=== PATIENT | female | born 1990 | race Caucasian/White ===

== ENCOUNTER 2016-09-08 17:28 | Emergency (ER) | payer SELFPAY ==
[2016-09-08] MEDS ORDERED: ONDANSETRON 4 MG TAB.RAPDIS PO ONE (18:07)
--- NOTE | 2016-09-08 18:08 | ER Document Report ---
ED Medical Screen (RME) - General Chief Complaint: Vomiting Stated Complaint: VOMITING,MUSCLE ACHES,NAUSEA,DIZZY Notes: 26-year-old female with onset 2 AM nausea vomiting diarrhea which is lasted throughout the day. She vomited at least 6 times, multiple episodes diarrhea. Has been sort of dizzy and lightheaded. No fever. I have greeted and performed a rapid initial assessment of this patient. A comprehensive ED assessment and evaluation of the patient, analysis of test results and completion of the medical decision making process will be conducted by additional ED providers. TRAVEL OUTSIDE OF THE [place] IN LAST 30 DAYS: No - Related Data Allergies/Adverse Reactions: naproxen sodium [From Treximet] Allergy (Verified 09/08/16 17:36) sumatriptan succinate [From Treximet] Allergy (Verified 09/08/16 17:36) trazodone Allergy (Verified 09/08/16 17:36) Past Medical History Neurological Medical History: Reports: Hx Migraine Renal/ Medical History: Denies: Hx Peritoneal Dialysis Psychiatric Medical History: Reports: Hx Anxiety - Immunizations Hx Diphtheria, Pertussis, Tetanus Vaccination: Yes Physical Exam - Vital signs Vitals: Temp Pulse Resp BP Pulse Ox 98.1 F 89 16 101/68 100 09/08/16 17:38 09/08/16 17:38 09/08/16 17:38 09/08/16 17:38 09/08/16 17:38 Course - Vital Signs Vital signs: Temp Pulse Resp BP Pulse Ox 98.1 F 89 16 101/68 100 09/08/16 17:38 09/08/16 17:38 09/08/16 17:38 09/08/16 17:38 09/08/16 17:38
[2016-09-08 18:40] LABS: ABSOLUTE EOSINOPHILS # (AUTO) 0.2 10^3/uL (0.0-0.6); ABSOLUTE LYMPHOCYTES (AUTO) 1.3 10^3/uL (0.5-4.7); ABSOLUTE MONOCYTES (AUTO) 0.6 10^3/uL (0.1-1.4); ABSOLUTE NEUT (AUTO) 11.7 10^3/uL (1.7-8.2); BASOPHILS % (AUTO) 0.2 % (0-2); EOSINOPHILS % (AUTO) 1.3 % (0-6); HEMATOCRIT 42.5 % (36.0-47.0); HEMOGLOBIN 13.5 g/dL (12.0-15.5); LYMPHOCYTES % (AUTO) 9.7 % (13-45); MEAN CORPUSCULAR HGB CONC 31.8 g/dL (32.0-36.0); MEAN CORPUSCULAR VOLUME 79 fl (80-97); MONOCYTES % (AUTO) 4.3 % (3-13); RED CELL DISTRIBUTION WIDTH 14.1 % (11.5-14.0); SEGMENTED NEUTROPHILS % (AUTO) 84.5 % (42-78); WHITE BLOOD COUNT 13.8 10^3/uL (4.0-10.5)
[2016-09-08 18:53] LABS: APPEARANCE,URINE SLIGHTLY-CLOUDY; BILIRUBIN,URINE NEGATIVE (NEGATIVE); GLUCOSE, URINE NEGATIVE (NEGATIVE); KETONES,URINE NEGATIVE (NEGATIVE); LEUKOCYTE ESTERASE,URINE NEGATIVE (NEGATIVE); NITRITE,URINE NEGATIVE (NEGATIVE); PROTEIN,URINE NEGATIVE (NEGATIVE); URINE SPECIFIC GRAVITY 1.019; UROBILINOGEN,URINE NEGATIVE mg/dL (<2.0)
[2016-09-08 19:01] LABS: ALANINE AMINOTRANSFERASE 21 U/L (9-52); ALBUMIN 4.8 g/dL (3.5-5.0); ALKALINE PHOSPHATASE 62 U/L (38-126); ANION GAP 14 (5-19); ASPARTATE AMINO TRANSFERASE 15 U/L (14-36); BILIRUBIN,DIRECT 0.3 mg/dL (0.0-0.4); BLOOD UREA NITROGEN 12 mg/dL (7-20); CALCIUM 9.1 mg/dL (8.4-10.2); CARBON DIOXIDE 25 mmol/L (22-30); CHLORIDE 105 mmol/L (98-107); CREATININE RESULT 0.65 mg/dL (0.52-1.25); GLUCOSE 107 mg/dL (75-110); POTASSIUM 4.2 mmol/L (3.6-5.0); SODIUM 144.3 mmol/L (137-145); TOTAL PROTEIN 7.7 g/dL (6.3-8.2)
[2016-09-08] MEDS ORDERED: PROMETHAZINE HCL 25 MG TABLET PO ONE (23:57)
[2016-09-08] MEDS ORDERED: HYDROCODONE/ACETAMINOPHEN 5-325 MG TABLET PO ONE (23:57)
[2016-09-08] MEDS ORDERED: NORMAL SALINE 1000 ML 1,000 ML IV ONE (23:57)
--- NOTE | 2016-09-09 01:23 | ER Document Report ---
ED GI/ - General Chief Complaint: Vomiting Stated Complaint: VOMITING,MUSCLE ACHES,NAUSEA,DIZZY Notes: Patient is a 26-year-old female that comes emergency department for chief complaint of vomiting and diarrhea that started yesterday, she states she has had about 10 episodes of diarrhea, she has vomited multiple times today, she denies fever, blood in vomit or stool, recent antibiotics, suspicious foods. Past medical history of migraines. LMP about 2 weeks ago. TRAVEL OUTSIDE OF THE [place] IN LAST 30 DAYS: No - Related Data Allergies/Adverse Reactions: naproxen sodium [From Treximet] Allergy (Verified 09/08/16 17:36) sumatriptan succinate [From Treximet] Allergy (Verified 09/08/16 17:36) trazodone Allergy (Verified 09/08/16 17:36) Past Medical History - General Information source: Patient - Social History Smoking Status: Never Smoker Drug Abuse: None Lives with: Family Family History: Reviewed & Not Pertinent Patient has suicidal ideation: No Patient has homicidal ideation: No Neurological Medical History: Reports: Hx Migraine Renal/ Medical History: Denies: Hx Peritoneal Dialysis Psychiatric Medical History: Reports: Hx Anxiety Surgical Hx: Negative - Immunizations Hx Diphtheria, Pertussis, Tetanus Vaccination: Yes Review of Systems - Review of Systems Constitutional: No symptoms reported EENT: No symptoms reported Cardiovascular: No symptoms reported Respiratory: No symptoms reported Gastrointestinal: No symptoms reported, See HPI Genitourinary: No symptoms reported Female Genitourinary: No symptoms reported Musculoskeletal: No symptoms reported Skin: No symptoms reported Hematologic/Lymphatic: No symptoms reported Neurological/Psychological: No symptoms reported Physical Exam - Vital signs Vitals: Temp Pulse Resp BP Pulse Ox 98.1 F 89 16 101/68 100 09/08/16 17:38 09/08/16 17:38 09/08/16 17:38 09/08/16 17:38 09/08/16 17:38 Interpretation: Normal - General General appearance: Appears well, Alert In distress: None - Patient alert, smiling, well-appearing - HEENT Head: Normocephalic, Atraumatic Eyes: Normal Pupils: PERRL - Respiratory Respiratory status: No respiratory distress Chest status: Nontender Breath sounds: Normal. No: Decreased air movement, Nonproductive cough, Productive cough, Rales, Rhonchi, Stridor, Wheezing Chest palpation: Normal - Cardiovascular Rhythm: Regular. No: Tachycardia Heart sounds: Normal auscultation, S1 appreciated, S2 appreciated Murmur: No - Abdominal Inspection: Normal Distension: No distension Bowel sounds: Normal Tenderness: Nontender. No: Tender - Soft and benign abdomen with no guarding or tenderness Organomegaly: No organomegaly - Back Back: Normal, Nontender. No: Tender, CVA tenderness - Extremities General upper extremity: Normal inspection, Nontender, Normal color, Normal ROM , Normal temperature General lower extremity: Normal inspection, Nontender, Normal color, Normal ROM , Normal temperature, Normal weight bearing. No: Fiordaliza's sign - Neurological Neuro grossly intact: Yes Cognition: Normal Orientation: AAOx4 Wolcott Coma Scale Eye Opening: Spontaneous Aysha Coma Scale Verbal: Oriented Aysha Coma Scale Motor: Obeys Commands Aysha Coma Scale Total: 15 Speech: Normal Motor strength normal: LUE, RUE, LLE, RLE Sensory: Normal - Psychological Associated symptoms: Normal affect, Normal mood - Skin Skin Temperature: Warm Skin Moisture: Dry Skin Color: Normal Course - Re-evaluation Re-evalutation: Patient reports that she vomited after Zofran, patient was given IV fluids, pain medication, Phenergan. Afterwards patient states she feels great. Patient well-appearing, not tachycardic, abdomen is completely nontender, mild leukocytosis which is nonspecific given clinical picture vomiting and diarrhea, chemistry unremarkable, very low suspicion of acute abdomen or severe infection , suspect patient has a virus. Patient be treated symptomatically with Phenergan, advised treatment, follow-up, return precautions which were discussed in detail. Patient states understanding and agreement. - Vital Signs Vital signs: Temp Pulse Resp BP Pulse Ox 97.4 F 63 19 104/61 100 09/09/16 03:32 09/09/16 03:32 09/09/16 03:32 09/09/16 03:32 09/09/16 03:32 - Laboratory Result Diagrams: 09/08/16 18:15 09/08/16 18:15 Laboratory results interpreted by me: 09/08/16 18:15 WBC 13.8 H RBC 5.40 H MCV 79 L MCH 25.0 L MCHC 31.8 L RDW 14.1 H Seg Neutrophils % 84.5 H Lymphocytes % 9.7 L Absolute Neutrophils 11.7 H Discharge - Discharge Clinical Impression: Vomiting and diarrhea Condition: Stable Disposition: HOME, SELF-CARE Additional Instructions: Workup, exam, symptoms most consistent with a viral illness. Take the prescribed medications, drink plenty of fluids, start with bland foods. Follow-up with primary care. Return to the emergency department for any concerning or worsening symptoms including uncontrolled vomiting, severe abdominal pain, etc. Prescriptions: Promethazine HCl [Phenergan 25 mg Tablet] 1 - 2 tab PO Q6H PRN #20 tablet PRN Reason: Forms: Return to Work
[2016-09-09 03:33] VITALS: BP 104/61
== END 2016-09-09 01:25 | disposition home or self-care (01) ==
LOC: ER 17:28
DX: R11.10 Vomiting, unspecified (principal); R19.7 Diarrhea, unspecified; M79.1 Myalgia; R42 Dizziness and giddiness
CPT/HCPCS: 99283; 96360; 36415; 84703; 85025; 80053; 81001; S0119; J7030

== ENCOUNTER 2016-12-25 12:13 | Emergency (ER) | payer SELFPAY ==
--- NOTE | 2016-12-25 12:35 | ER Document Report ---
ED Medical Screen (RME) - General Chief Complaint: Abdominal Pain Stated Complaint: ABDOMINAL PAIN,NAUSEA,WEAK Time Seen by Provider: 12/25/16 12:33 Mode of Arrival: Ambulatory Information source: Patient TRAVEL OUTSIDE OF THE [place] IN LAST 30 DAYS: No - HPI Onset: Yesterday - PM Onset/Duration: Gradual Quality of pain: Cramping - since this AM, Dull Severity: Moderate Associated Symptoms: Nausea, Vomiting Exacerbated by: Movement Relieved by: Remaining still Similar symptoms previously: No Recently seen / treated by doctor: No - Related Data Allergies/Adverse Reactions: naproxen sodium [From Treximet] Allergy (Verified 12/25/16 12:19) sumatriptan succinate [From Treximet] Allergy (Verified 12/25/16 12:19) trazodone Allergy (Verified 12/25/16 12:19) Home Medications: Current Home Medications No Home Medications 12/25/16 [History] Past Medical History - General Information source: Patient - Social History Frequency of alcohol use: Rare Drug Abuse: None Neurological Medical History: Reports: Hx Migraine Renal/ Medical History: Denies: Hx Peritoneal Dialysis Psychiatric Medical History: Reports: Hx Anxiety, Hx Depression Past Surgical History: Reports: Hx Oral Surgery - Tooth removal. Denies: Hx Abdominal Surgery - Immunizations Hx Diphtheria, Pertussis, Tetanus Vaccination: Yes Review of Systems - Review of Systems Constitutional: See HPI EENT: No symptoms reported Cardiovascular: No symptoms reported Respiratory: No symptoms reported Gastrointestinal: See HPI Physical Exam - Vital signs Vitals: Temp Pulse Resp BP Pulse Ox 98.3 F 81 12 107/66 99 12/25/16 12:19 12/25/16 12:19 12/25/16 12:19 12/25/16 12:19 12/25/16 12:19 Interpretation: Normal. No: Tachycardic, Tachypneic, Febrile Course - Vital Signs Vital signs: Temp Pulse Resp BP Pulse Ox 98.3 F 81 12 107/66 99 12/25/16 12:19 12/25/16 12:19 12/25/16 12:19 12/25/16 12:19 12/25/16 12:19
[2016-12-25 13:31] LABS: APPEARANCE,URINE CLOUDY; BILIRUBIN,URINE NEGATIVE (NEGATIVE); GLUCOSE, URINE NEGATIVE (NEGATIVE); KETONES,URINE NEGATIVE (NEGATIVE); LEUKOCYTE ESTERASE,URINE MODERATE (NEGATIVE); NITRITE,URINE POSITIVE (NEGATIVE); PROTEIN,URINE 100 mg/dL (NEGATIVE); URINE SPECIFIC GRAVITY 1.027; UROBILINOGEN,URINE NEGATIVE mg/dL (<2.0)
[2016-12-25 13:48] LABS: ALANINE AMINOTRANSFERASE 22 U/L (9-52); ALKALINE PHOSPHATASE 72 U/L (38-126); ANION GAP 13 (5-19); ASPARTATE AMINO TRANSFERASE 23 U/L (14-36); BILIRUBIN,DIRECT 0.3 mg/dL (0.0-0.4); BILIRUBIN,TOTAL 0.6 mg/dL (0.2-1.3); BLOOD UREA NITROGEN 11 mg/dL (7-20); CALCIUM 9.4 mg/dL (8.4-10.2); CARBON DIOXIDE 26 mmol/L (22-30); CHLORIDE 106 mmol/L (98-107); CREATININE RESULT 0.69 mg/dL (0.52-1.25); GLUCOSE 108 mg/dL (75-110); POTASSIUM 3.7 mmol/L (3.6-5.0); SODIUM 145.1 mmol/L (137-145); TOTAL PROTEIN 8.5 g/dL (6.3-8.2)
--- NOTE | 2016-12-25 14:51 | ER Document Report ---
ED General - General Chief Complaint: Abdominal Pain Stated Complaint: ABDOMINAL PAIN,NAUSEA,WEAK Time Seen by Provider: 12/25/16 12:33 Mode of Arrival: Ambulatory Information source: Patient Notes: Is a 26-year-old female with no medical problems 4 para 2 (history of 2 miscarriages) presents to the emergency room with nausea, right-sided abdominal pain and chills. Patient denies symptoms of UTI. Patient denies vaginal discharge. TRAVEL OUTSIDE OF THE [place] IN LAST 30 DAYS: No - Related Data Allergies/Adverse Reactions: naproxen sodium [From Treximet] Allergy (Verified 12/25/16 12:19) sumatriptan succinate [From Treximet] Allergy (Verified 12/25/16 12:19) trazodone Allergy (Verified 12/25/16 12:19) Past Medical History - General Information source: Patient - Social History Smoking Status: Former Smoker Frequency of alcohol use: Rare Drug Abuse: None Family History: Reviewed & Not Pertinent Neurological Medical History: Reports: Hx Migraine Renal/ Medical History: Denies: Hx Peritoneal Dialysis Psychiatric Medical History: Reports: Hx Anxiety, Hx Depression Past Surgical History: Reports: Hx Oral Surgery - Tooth removal. Denies: Hx Abdominal Surgery - Immunizations Hx Diphtheria, Pertussis, Tetanus Vaccination: Yes Physical Exam - Vital signs Vitals: Temp Pulse Resp BP Pulse Ox 98.3 F 81 12 107/66 99 12/25/16 12:19 12/25/16 12:19 12/25/16 12:19 12/25/16 12:19 12/25/16 12:19 Notes: Physical exam: GENERAL: 26-year-old female, alert and oriented 3, no acute distress HEAD: Atraumatic, normocephalic. EYES: Pupils equal round and reactive to light, extraocular movements intact, sclera anicteric, conjunctiva are normal. ENT: TMs normal, nares patent, oropharynx clear without exudates. Moist mucous membranes. NECK: Normal range of motion, supple without lymphadenopathy or JVD. LUNGS: Breath sounds clear to auscultation bilaterally and equal. No wheezes rales or rhonchi. HEART: Regular rate and rhythm without murmurs, rubs or gallops. Back: Patient does have right CVA tenderness. ABDOMEN: Soft, normoactive bowel sounds. Mild tenderness over the right flank. No pain at McBurney's point. No guarding, no rebound. No masses appreciated. Pelvic exam: External genitalia normal, scant discharge in vault, no cervical motion tenderness, no adnexal tenderness, no adnexal masses. EXTREMITIES: Normal range of motion, no pitting or edema. No clubbing or cyanosis. NEUROLOGICAL: Cranial nerves II through XII grossly intact. Normal speech, normal gait. PSYCH: Normal mood, normal affect. SKIN: Warm, Dry, normal turgor, no rashes or lesions noted. Course - Re-evaluation Re-evalutation: 12/25/16 17:25 Repeat examination, the patient is alert and oriented 3. She did eat a brownie. She has an appetite. She has minimal discomfort in the right lower abdomen. She seems mostly uncomfortable in the right flank consistent with a pyelonephritis. Bedside ultrasound showed no hydronephrosis. Pelvic exam revealed a very benign exam in the pelvic region. Labs have been reasonable. I have given the patient good instructions that if she develops worsening pain to the right lower quadrant, that she will need to return to the emergency room for reevaluation. - Vital Signs Vital signs: Temp Pulse Resp BP Pulse Ox 98.3 F 81 12 107/66 99 12/25/16 12:19 12/25/16 12:19 12/25/16 12:19 12/25/16 12:19 12/25/16 12:19 - Laboratory Result Diagrams: 12/25/16 14:37 12/25/16 12:56 Laboratory results interpreted by me: 12/25/16 12/25/16 12/25/16 12:56 12:56 14:37 MCH 26.2 L RDW 14.1 H Sodium 145.1 H Total Protein 8.5 H Urine Protein 100 H Urine Nitrite POSITIVE H Ur Leukocyte Esterase MODERATE H Discharge - Discharge Clinical Impression: Pyelonephritis Condition: Stable Disposition: HOME, SELF-CARE Instructions: Pyelonephritis ([facility]), Observation for Appendicitis ([facility]) Additional Instructions: Recommendations: Rest, drink plenty of fluids, take antibiotics as prescribed. Take nausea medicine and pain medicine as prescribed. Return to the emergency room if he developed worsening pain to the right lower abdomen. This is where the appendix is, and if the pain worsens in this area, he will need reevaluation and possible CT scan. The pain medicine you're taking prescribed as a narcotic. There are several important things you should know about this medicine: 1. This medicine contains Tylenol: It is important that you do not take Tylenol (or acetaminophen) while on this medicine. Tylenol is metabolized by the liver and taking too much Tylenol (acetaminophen) can lay to liver damage and even liver failure. 2. Taking narcotics for too long can lead to physical and mental dependence. Take this medicine only if really needed and in the lowest quantity to achieve pain relief. 3. Do not drink alcohol while on this medicine. Alcohol interacts with narcotics and the combination can be dangerous. 4. Do not drive or operate machinery while on this medicine. 5. Narcotics do cause constipation, so drink plenty of fluids and daily stool softeners. Prescriptions: Ondansetron HCl [Zofran 4 mg Tablet] 1 - 2 tab PO Q4H PRN #10 tablet PRN Reason: Oxycodone HCl/Acetaminophen [Percocet 5-325 mg Tablet] 1 - 2 tab PO ASDIR PRN # 15 tablet PRN Reason: Sulfamethoxazole/Trimethoprim [Bactrim Ds Tablet] 1 each PO BID #14 tablet Referrals: [facility] [Provider Group] - Follow up as needed (this is a free Clinic affiliated with the Hospital: Call for the next available appointment.)
[2016-12-25] MEDS ORDERED: NORMAL SALINE 1000 ML 1,000 ML IV PRN (14:52)
[2016-12-25] MEDS ORDERED: ONDANSETRON HCL INJ/PF 4 MG/2 ML SDV IV ONE (14:52)
[2016-12-25 15:00] LABS: ABSOLUTE BASOPHILS # (AUTO) 0.1 10^3/uL (0.0-0.2); ABSOLUTE LYMPHOCYTES (AUTO) 2.1 10^3/uL (0.5-4.7); ABSOLUTE MONOCYTES (AUTO) 0.5 10^3/uL (0.1-1.4); ABSOLUTE NEUT (AUTO) 7.8 10^3/uL (1.7-8.2); BASOPHILS % (AUTO) 0.6 % (0-2); EOSINOPHILS % (AUTO) 0.1 % (0-6); HEMATOCRIT 40.3 % (36.0-47.0); HEMOGLOBIN 13.2 g/dL (12.0-15.5); HGB HCT DIFFERENCE -0.7; LYMPHOCYTES % (AUTO) 19.8 % (13-45); MEAN CORPUSCULAR HEMOGLOBIN 26.2 pg (27.0-33.4); MEAN CORPUSCULAR HGB CONC 32.6 g/dL (32.0-36.0); MEAN CORPUSCULAR VOLUME 80 fl (80-97); RED BLOOD COUNT 5.02 10^6/uL (3.72-5.28); RED CELL DISTRIBUTION WIDTH 14.1 % (11.5-14.0); SEGMENTED NEUTROPHILS % (AUTO) 74.5 % (42-78); WHITE BLOOD COUNT 10.5 10^3/uL (4.0-10.5)
[2016-12-25] MEDS ORDERED: CEFTRIAXONE 1 GM/D5W RTU 50 ML IV ONE (15:38)
[2016-12-25] MEDS ORDERED: MORPHINE SULFATE 10 MG/ML INJ IV ONE (15:38)
[2016-12-25 17:20] LABS: CHLAM PCR NOT DETECTED (NOT DETECT)
[2016-12-25 17:52] VITALS: BP 107/56
== END 2016-12-25 17:50 | disposition home or self-care (01) ==
LOC: ER 12:13
DX: N12 Tubulo-interstitial nephritis, not specified as acute or chronic (principal); R11.0 Nausea; R68.83 Chills (without fever); Z88.8 Allergy status to other drugs, medicaments and biological substances; Z87.891 Personal history of nicotine dependence
CPT/HCPCS: 99284; 96361; 96375; 96365; 36415; 87040; 87210; 84703; 85025; 87077; 80053; 81001; 87186; 87491; 87591; J2270; J2405; J7030; J0696

== ENCOUNTER 2016-12-29 17:56 | Emergency (ER) | payer SELFPAY ==
[2016-12-29] MEDS ORDERED: NORMAL SALINE 1000 ML 1,000 ML IV PRN (18:23)
--- NOTE | 2016-12-29 18:24 | ER Document Report ---
ED Medical Screen (RME) - General Chief Complaint: Abdominal pain, low back pain, nausea Stated Complaint: ABDOMINAL PAIN,BACK PAIN,NAUSEA Time Seen by Provider: 12/29/16 18:19 Notes: Patient was seen and treated here on 12/25/2016. She was diagnosed with pyelonephritis. She was sent home with antibiotics. Patient states that she has been taking the antibiotics but the pain is getting worse. She points to the right lower quadrant as the source of the pain. She states she has had some vomiting. She also states she has decreased appetite. She denies any changes in stools or fevers. TRAVEL OUTSIDE OF THE [place] IN LAST 30 DAYS: No - Related Data Allergies/Adverse Reactions: naproxen sodium [From Treximet] Allergy (Verified 12/25/16 12:19) sumatriptan succinate [From Treximet] Allergy (Verified 12/25/16 12:19) trazodone Allergy (Verified 12/25/16 12:19) Past Medical History Neurological Medical History: Reports: Hx Migraine Renal/ Medical History: Denies: Hx Peritoneal Dialysis Psychiatric Medical History: Reports: Hx Anxiety, Hx Depression Past Surgical History: Reports: Hx Oral Surgery - Tooth removal. Denies: Hx Abdominal Surgery - Immunizations Hx Diphtheria, Pertussis, Tetanus Vaccination: Yes Physical Exam - Vital signs Vitals: Temp Pulse Resp BP Pulse Ox 98.9 F 83 14 112/65 98 12/29/16 18:00 12/29/16 18:00 12/29/16 18:00 12/29/16 18:00 12/29/16 18:00 Course - Vital Signs Vital signs: Temp Pulse Resp BP Pulse Ox 98.9 F 83 14 112/65 98 12/29/16 18:00 12/29/16 18:00 12/29/16 18:00 12/29/16 18:00 12/29/16 18:00
[2016-12-29 18:48] LABS: ABSOLUTE EOSINOPHILS # (AUTO) 0.1 10^3/uL (0.0-0.6); ABSOLUTE LYMPHOCYTES (AUTO) 2.3 10^3/uL (0.5-4.7); ABSOLUTE MONOCYTES (AUTO) 0.4 10^3/uL (0.1-1.4); ABSOLUTE NEUT (AUTO) 3.7 10^3/uL (1.7-8.2); BASOPHILS % (AUTO) 0.7 % (0-2); EOSINOPHILS % (AUTO) 1.5 % (0-6); HEMATOCRIT 39.7 % (36.0-47.0); HEMOGLOBIN 13.2 g/dL (12.0-15.5); HGB HCT DIFFERENCE -0.1; MEAN CORPUSCULAR HEMOGLOBIN 26.8 pg (27.0-33.4); MEAN CORPUSCULAR HGB CONC 33.3 g/dL (32.0-36.0); MEAN CORPUSCULAR VOLUME 81 fl (80-97); MONOCYTES % (AUTO) 5.9 % (3-13); RED BLOOD COUNT 4.93 10^6/uL (3.72-5.28); RED CELL DISTRIBUTION WIDTH 13.9 % (11.5-14.0); SEGMENTED NEUTROPHILS % (AUTO) 56.9 % (42-78); WHITE BLOOD COUNT 6.6 10^3/uL (4.0-10.5)
[2016-12-29 18:55] LABS: APPEARANCE,URINE SLIGHTLY-CLOUDY; BILIRUBIN,URINE NEGATIVE (NEGATIVE); GLUCOSE, URINE NEGATIVE (NEGATIVE); KETONES,URINE NEGATIVE (NEGATIVE); LEUKOCYTE ESTERASE,URINE MODERATE (NEGATIVE); NITRITE,URINE NEGATIVE (NEGATIVE); PROTEIN,URINE NEGATIVE (NEGATIVE); URINE SPECIFIC GRAVITY 1.011; UROBILINOGEN,URINE NEGATIVE mg/dL (<2.0)
[2016-12-29 19:06] LABS: ALANINE AMINOTRANSFERASE 34 U/L (9-52); ALBUMIN 4.6 g/dL (3.5-5.0); ALKALINE PHOSPHATASE 54 U/L (38-126); ANION GAP 11 (5-19); ASPARTATE AMINO TRANSFERASE 17 U/L (14-36); BILIRUBIN,DIRECT 0.3 mg/dL (0.0-0.4); BILIRUBIN,TOTAL 0.4 mg/dL (0.2-1.3); BLOOD UREA NITROGEN 13 mg/dL (7-20); CALCIUM 9.3 mg/dL (8.4-10.2); CARBON DIOXIDE 24 mmol/L (22-30); CHLORIDE 105 mmol/L (98-107); CREATININE RESULT 0.76 mg/dL (0.52-1.25); GLUCOSE 74 mg/dL (75-110); POTASSIUM 4.1 mmol/L (3.6-5.0); SODIUM 140.2 mmol/L (137-145); TOTAL PROTEIN 7.4 g/dL (6.3-8.2)
--- NOTE | 2016-12-29 19:33 | ER Document Report ---
ED GI/ - General Chief Complaint: Abdominal pain, low back pain, nausea Stated Complaint: ABDOMINAL PAIN,BACK PAIN,NAUSEA Time Seen by Provider: 12/29/16 18:19 Notes: Patient is a 26-year-old female returns emergency department complaining of right lower quadrant pain. Patient was evaluated here on Wednesday and diagnosed with pyelonephritis, discharged home on oral antibiotics, pain medication and nausea medication. Patient states that she has had persistent pain over the weekend without improvement in her symptoms. Patient stated his pain got worse. States the pain is in the right lower quadrant, scribed as a constant dull achy pain with intermittent sharp pain. Patient denies any fever, chills. Patient states she has been taking the pain medication that she received on Wednesday with mild improvement in her pain. Admits to intermittent nausea without vomiting. Denies any vaginal discharge. Patient is sexually active with her boyfriend and does not use protection. Patient states she does have an IUD in place that she has had for about a year and has not had any issues with it. Patient states that she is following up with her [employer] on because she had an abnormal Pap smear. TRAVEL OUTSIDE OF THE [place] IN LAST 30 DAYS: No - Related Data Allergies/Adverse Reactions: naproxen sodium [From Treximet] Allergy (Verified 12/25/16 12:19) sumatriptan succinate [From Treximet] Allergy (Verified 12/25/16 12:19) trazodone Allergy (Verified 12/25/16 12:19) Past Medical History - Social History Smoking Status: Never Smoker Family History: Reviewed & Not Pertinent Neurological Medical History: Reports: Hx Migraine Renal/ Medical History: Denies: Hx Peritoneal Dialysis Psychiatric Medical History: Reports: Hx Anxiety, Hx Depression Past Surgical History: Reports: Hx Oral Surgery - Tooth removal. Denies: Hx Abdominal Surgery - Immunizations Hx Diphtheria, Pertussis, Tetanus Vaccination: Yes Review of Systems - Review of Systems Constitutional: No symptoms reported Gastrointestinal: No symptoms reported Genitourinary: No symptoms reported Female Genitourinary: See HPI -: Yes All other systems reviewed and negative Physical Exam - Vital signs Vitals: Temp Pulse Resp BP Pulse Ox 98.9 F 83 14 112/65 98 12/29/16 18:00 12/29/16 18:00 12/29/16 18:00 12/29/16 18:00 12/29/16 18:00 - Notes Notes: PHYSICAL EXAM GENERAL: Alert, interacts well. LUNGS: Clear to auscultation bilaterally, no wheezes, rales, or rhonchi. No respiratory distress. HEART: Regular rate and rhythm. No murmurs, gallops, or rubs. ABDOMEN: Soft, nondistended, nontender. No guarding, rebound, or rigidity.. Bowel sounds present in all 4 quadrants. FEMALE : Normal external exam. No evidence of lesions, lacerations, bruising or vesicles. Speculum exam normal cervix closed. IUD strings visible within the cervix. Minimal right adnexal tenderness. No evidence of pus. No evidence of vaginal discharge with odor. No evidence of lesions. No vaginal bleeding. Bimanual exam normal no cervical motion tenderness. No adnexal mass or adnexal tenderness. EXTREMITIES: Moves all 4 extremities spontaneously. No edema, radial and dorsalis pedis pulses 2/4 bilaterally. No cyanosis. NEUROLOGICAL: Alert and oriented x4. Normal speech. PSYCH: Normal affect, normal mood. SKIN: Warm, dry, normal turgor. No rashes or lesions noted. Course - Re-evaluation Re-evalutation: 12/30/16 2407 Patient is a 26-year-old female hemodynamic stable, no acute distress afebrile. Evidence of eccentrically placed IUD noted on CT scan. Otherwise no evidence of leukocytosis noted on CBC. Patient has improved with pain medication. Patient at this time is declining to have her IUD removed with like to go home and says she will follow up with [employer] to have her IUD evaluated. After performing a Medical Screening Examination, I estimate there is LOW risk for ACUTE APPENDICITIS, BOWEL OBSTRUCTION, ACUTE CHOLECYSTITIS, PERFORATED DIVERTICULITIS, INCARCERATED HERNIA, PANCREATITIS, PELVIC INFLAMMATORY DISEASE, PERFORATED ULCER, ECTOPIC , or TUBO-OVARIAN ABSCESS, thus I consider the discharge disposition reasonable. Also, there is no evidence or peritonitis , sepsis, or toxicity. I have reevaluated this patient multiple times and no significant life threatening changes are noted. The patient and I have discussed the diagnosis and risks, and we agree with discharging home with close follow-up with the understanding that symptoms and presentations can change. We also discussed returning to the Emergency Department immediately if new or worsening symptoms occur. We have discussed the symptoms which are most concerning (e.g., bloody stool, fever, changing or worsening pain, vomiting) that necessitate immediate return. - Vital Signs Vital signs: Temp Pulse Resp BP Pulse Ox 98.9 F 83 12 110/75 98 12/29/16 18:00 12/29/16 18:00 12/29/16 23:45 12/29/16 23:45 12/29/16 23:45 - Laboratory Result Diagrams: 12/29/16 18:38 12/29/16 18:38 Laboratory results interpreted by me: 12/29/16 12/29/16 12/29/16 18:38 18:38 18:38 MCH 26.8 L Glucose 74 L Ur Leukocyte Esterase MODERATE H - Diagnostic Test Radiology reviewed: Image reviewed, Reports reviewed Discharge - Discharge Clinical Impression: Pelvic pain, Bacterial vaginitis Condition: Good Disposition: HOME, SELF-CARE Instructions: Vaginosis, Bacterial ([facility]) Additional Instructions: Your symptoms that you were evaluated for today could likely be related to your IUD. Since you have declined to have it removed in the emergency department [facility] for [facility] and evaluation. Otherwise please follow-up with the health department as scheduled. Prescriptions: Metronidazole [Flagyl] 500 mg PO BID #14 tablet Forms: Return to Work Referrals: THERESA MODI MD [ACTIVE STAFF] - Follow up tomorrow
[2016-12-29] MEDS ORDERED: MORPHINE SULFATE 10 MG/ML INJ IV ONE ×2 (21:04→23:38)
[2016-12-29] MEDS ORDERED: MORPHINE SULFATE 10 MG/ML INJ ONE (21:08)
--- NOTE | 2016-12-29 21:56 | RADIOLOGY REPORT (SQ) ---
EXAM DESCRIPTION: CT ABD/PELVIS WITH IV ORAL COMPLETED DATE/TIME: 12/29/2016 9:25 pm REASON FOR STUDY: rlq pain COMPARISON: None. TECHNIQUE: CT scan of the abdomen and pelvis performed using helical scanning technique with dynamic intravenous contrast injection and oral contrast. Images reviewed with lung, soft tissue, and bone w indows. Reconstructed coronal and sagittal MPR images reviewed. Delayed images for evaluation of the urinary system also acquired. All images stored on PACS. All CT scanners at this facility use dose modulation, iterative reconstruction, and/or weight based d osing when appropriate to reduce radiation dose to as low as reasonably achievable (ALARA). [facility]: Dose Right [facility]: CareDose [facility]: Dose Right [facility]: Teradose 4D [facility]: [employer] CONTRAST TYPE AND DOSE: contrast/concentration: Isovue 370.00 mg/ml; Total Contrast Delivered: 59.0 ml; Total Saline Delivered: 65.0 ml RENAL FUNCTION: None required. The patient is less than 50 years old. RADIATION DOSE: Up-to-date CT equipment and radiation dose reduction techniques were employed. CTDIv ol: 3.2 - 3.8 mGy. DLP: 333 mGy-cm.. LIMITATIONS: None. FINDINGS: LOWER CHEST: No significant findings. No nodules or infiltrates. LIVER: Normal size. No masses. No dilated ducts. SPLEEN: Normal size. No focal lesions. PANCREAS: No masses. No significant calcifications. No adjacent inflammation or peripancreatic fluid collections. Pancreatic duct not dilated. GALLBLADDER: No identified stones by CT criteria. No inflammatory changes to suggest cholecystitis. ADRENAL GLANDS: No significant masses or asymmetry. RIGHT KIDNEY AND URETER: No solid masses. No significant calcifications. No hydronephrosis or hyd roureter. LEFT KIDNEY AND URETER: No solid masses. No significant calcifications. No hydronephrosis or hydr oureter. AORTA AND VESSELS: No aneurysm. No dissection. Renal arteries, SMA, celiac without stenosis. RETROPERITONEUM: No retroperitoneal adenopathy, hemorrhage or masses. BOWEL AND PERITONEAL CAVITY: No masses or inflammatory changes. No free fluid or peritoneal masses. APPENDIX: Normal. PELVIS: IUD is identified which appears to be eccentrically positioned in relation to the uterus and may extend external to the uterus. ABDOMINAL WALL: No masses. No hernias. BONES: No significant or acute findings. OTHER: No other significant finding. IMPRESSION: No CT evidence for appendicitis. IUD is identified which appears to be eccentrically po sitioned in relation to the uterus and may extend external to the uterus. Clinical correlation is re commended. Other findings as noted above TECHNICAL DOCUMENTATION: JOB ID: [id number] Quality ID # [id number]: Final reports with documentation of one or more dose reduction techniques (e.g., Au tomated exposure control, adjustment of the mA and/or kV according to patient size, use of iterative reconstruction technique) 2010 [employer]- All Rights Reserved
[2016-12-29] MEDS ORDERED: IBUPROFEN 800 MG TABLET PO ONE (23:35)
[2016-12-29] MEDS ORDERED: METRONIDAZOLE 500 MG TABLET PO ONE (23:35)
[2016-12-29] MEDS ORDERED: ONDANSETRON HCL INJ/PF 4 MG/2 ML SDV IV ONE (23:37)
[2016-12-29 23:55] VITALS: BP 110/75
== END 2016-12-29 23:55 | disposition home or self-care (01) ==
LOC: ER 17:56
DX: N76.0 Acute vaginitis (principal); B96.89 Other specified bacterial agents as the cause of diseases classified elsewhere; N12 Tubulo-interstitial nephritis, not specified as acute or chronic; R10.2 Pelvic and perineal pain; R10.31 Right lower quadrant pain; R11.0 Nausea; Z97.5 Presence of (intrauterine) contraceptive device; Z88.6 Allergy status to analgesic agent; Z88.8 Allergy status to other drugs, medicaments and biological substances
CPT/HCPCS: 96376; 99284; 96361; 96374; 96375; 36415; 87210; 85025; 81025; 80053; 81001; 74177; J2270; J2405; J7030

== ENCOUNTER 2017-08-30 18:04 | Emergency (ER) | payer SELFPAY ==
[2017-08-30 18:19] VITALS: BP 105/56
[2017-08-30] MEDS ORDERED: TETRACAINE HCL 0.5% OPH SOLN 2 ML OD ONE (18:51)
--- NOTE | 2017-08-30 18:54 | ER Document Report ---
ED General - General Chief Complaint: Eye Problem Stated Complaint: LEFT EYE PAIN, IRRITATION Time Seen by Provider: 08/30/17 18:47 TRAVEL OUTSIDE OF THE [place] 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 Patient states yesterday she was trying to contact out does not think she was able to. She did quite a bit of manipulation and rubbing try to do that. Now she developed some redness in her eye, burning, mild photophobia and foreign body sensation. Tetanus is up-to-date, denies any drainage or discharge, just watery drainage. Nonradiating. Gradual onset. No other modifying factors, no other associated symptoms, no other provocative or palliative factors. - Related Data Allergies/Adverse Reactions: naproxen sodium [From Treximet] Allergy (Verified 08/30/17 18:04) sumatriptan succinate [From Treximet] Allergy (Verified 08/30/17 18:04) trazodone Allergy (Verified 08/30/17 18:04) Past Medical History - General Information source: Patient - Social History Smoking Status: Never Smoker Family History: Reviewed & Not Pertinent - Medical History Medical History: Negative Neurological Medical History: Reports: Hx Migraine Renal/ Medical History: Denies: Hx Peritoneal Dialysis Psychiatric Medical History: Reports: Hx Anxiety, Hx Bipolar Disorder, Hx Depression Past Surgical History: Reports: Hx Oral Surgery - Tooth removal. Denies: Hx Abdominal Surgery - Immunizations Hx Diphtheria, Pertussis, Tetanus Vaccination: Yes Review of Systems - Review of Systems Notes: Patient denies any chest pain, abdominal pain, vomiting or headache Physical Exam - Vital signs Vitals: Temp Pulse Resp BP Pulse Ox 98.2 F 73 18 105/56 L 99 08/30/17 18:17 08/30/17 18:17 08/30/17 18:17 08/30/17 18:17 08/30/17 18:17 - Notes Notes: General: Well devloped, no acute distress. HEENT: Normocephalic, atraumatic. Pupils equal round reactive to light. Mucosa moist. No JVD. Chest: No trauma, normal excursion. Respiratory: Good air exchange, normal excursion. Cardiac: Regular rhythm Abdomen: Soft, benign. Nondistended. Back: No asymmetry or gross abnormality. Motor: Grossly normal power and tone. Neurologic: Alert, nonfocal. Vascular: Well perfused Skin: No petechiae or purpura Eye: Evaluation of the left eye shows mild conjunctival injection, palpebral greater than bulbar. The lids are everted, eyes put through complete range of motion and there is no foreign body or retained contact lens seen. An approximately 12 o'clock position above the cornea there is a small area of hemorrhage on the sclera. Course - Re-evaluation Re-evalutation: Well-appearing female with likely traumatic conjunctivitis and episcleral hemorrhage. However, I will obtain fluorescein examination to exclude corneal damage. There is no evidence of foreign body. 08/30/17 19:08 Tetracaine anesthesia is applied, fluorescein dye is applied. Examination shows no evidence of dye uptake. Patient is discharged home, supportive care instructions given, will take Tylenol, avoid NSAIDs and aspirin. - Vital Signs Vital signs: Temp Pulse Resp BP Pulse Ox 98.2 F 73 18 105/56 L 99 08/30/17 18:17 08/30/17 18:17 08/30/17 18:17 08/30/17 18:17 08/30/17 18:17 Discharge - Discharge Clinical Impression: Traumatic conjunctivitis Condition: Good Disposition: HOME, SELF-CARE Instructions: Conjunctivitis ([facility])
== END 2017-08-30 19:17 | disposition home or self-care (01) ==
LOC: ER 18:04
DX: H10.89 Other conjunctivitis (principal); H57.8 Other specified disorders of eye and adnexa; Z88.6 Allergy status to analgesic agent; Z88.8 Allergy status to other drugs, medicaments and biological substances
CPT/HCPCS: 99283

== ENCOUNTER 2017-09-05 14:26 | Emergency (ER) | payer SELFPAY ==
[2017-09-05] MEDS ORDERED: IBUPROFEN 600 MG TABLET PO ONE (14:57)
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
--- NOTE | 2017-09-05 16:04 | RADIOLOGY REPORT (SQ) ---
EXAM DESCRIPTION: KNEE LEFT 4 VIEW COMPLETED DATE/TIME: 09/05/2017 3:51 pm REASON FOR STUDY: fall COMPARISON: None. NUMBER OF VIEWS: Four views. TECHNIQUE: AP, lateral, and both oblique radiographic images acquired of the left knee. LIMITATIONS: None. FINDINGS: MINERALIZATION: Normal. BONES: No acute fracture or dislocation. No worrisome bone lesions. JOINT: No effusion. SOFT TISSUES: No soft tissue swelling. No radio-opaque foreign body. OTHER: No other significant finding. IMPRESSION: NO RADIOGRAPHIC EVIDENCE OF ACUTE INJURY. TECHNICAL DOCUMENTATION: JOB ID: [id number] [place]-72 2010 [email or web address]- All Rights Reserved Reading location - IP/workstation name: [email or web address]
[2017-09-05 16:48] VITALS: BP 91/69
== END 2017-09-05 16:52 | disposition home or self-care (01) ==
LOC: ER 14:26
DX: M25.562 Pain in left knee (principal); W10.9XXA Fall (on) (from) unspecified stairs and steps, initial encounter; Y92.009 Unspecified place in unspecified non-institutional (private) residence as the place of occurrence of the external cause; R42 Dizziness and giddiness
CPT/HCPCS: 99283; 73562; L1830

== ENCOUNTER 2017-09-09 09:14 | Emergency (ER) | payer SELFPAY ==
[2017-09-09 09:19] VITALS: BP 109/66
--- NOTE | 2017-09-09 09:40 | ER Document Report ---
ED Extremity Problem, Lower - General Chief Complaint: Knee Pain Stated Complaint: KNEE SWOLLEN Time Seen by Provider: 09/09/17 09:23 Mode of Arrival: Ambulatory Information source: Patient, [facility] Records Notes: This 27-year-old female patient comes emergency room complaining of persistent pain and swelling to her left knee. She fell down her front steps on 09/04/2017 following about 3 steps. She thinks she twisted the knee on the way down. She was seen in emergency room the following day. She reports that she did have swelling of the knee at that time, documented physical exam was a preprinted type and did not mention any abnormalities. She did have a normal x-ray of the knee, and was placed in the knee immobilizer. She reports she was told she would be completely better in 3 days or to return to the emergency room. Patient reports that the discomfort is mostly in the anterior knee above the patella. Is made worse with walking. She has continued to walk quite a bit using the knee immobilizer and crutches. She has 2 young children, one is very young and all over the place. She also has tried to work at her job at the [employer]. She has been taking Tylenol and ibuprofen. She does need a limited activity note to be able to go to work and not have to stand on her feet, cleaning up the place, or do excessive walking. She states she will be able to work in a limited activity capacity with a doctor's note. TRAVEL OUTSIDE OF THE [place] IN LAST 30 DAYS: No - Related Data Allergies/Adverse Reactions: naproxen sodium [From Treximet] Allergy (Verified 09/05/17 14:30) sumatriptan succinate [From Treximet] Allergy (Verified 09/05/17 14:30) trazodone Allergy (Verified 09/05/17 14:30) Past Medical History - General Information source: Patient, [facility] Records - Social History Smoking Status: Never Smoker Cigarette use (# per day): No Chew tobacco use (# tins/day): No Smoking Education Provided: No Frequency of alcohol use: None Drug Abuse: None Occupation: [employer] Lives with: Family Family History: Reviewed & Not Pertinent Patient has suicidal ideation: No Patient has homicidal ideation: No Neurological Medical History: Reports: Hx Migraine Psychiatric Medical History: Reports: Hx Anxiety, Hx Bipolar Disorder, Hx Depression Past Surgical History: Reports: Hx Oral Surgery - Tooth removal - Immunizations Hx Diphtheria, Pertussis, Tetanus Vaccination: Yes Review of Systems - Review of Systems Constitutional: No symptoms reported EENT: No symptoms reported Cardiovascular: No symptoms reported Respiratory: No symptoms reported Gastrointestinal: No symptoms reported Genitourinary: No symptoms reported Female Genitourinary: No symptoms reported Musculoskeletal: Joint pain - Left knee pain and swelling for the last 6 days since her injury. Hematologic/Lymphatic: No symptoms reported Neurological/Psychological: No symptoms reported Physical Exam - Vital signs Vitals: Temp Pulse Resp BP Pulse Ox 98.0 F 95 14 109/66 97 09/09/17 09:18 09/09/17 09:18 09/09/17 09:18 09/09/17 09:18 09/09/17 09:18 - General General appearance: Appears well, Alert In distress: None - HEENT Head: Normocephalic, Atraumatic Eyes: Normal Pupils: PERRL Neck: Normal - Cardiovascular Rhythm: Regular - Abdominal Inspection: Normal - Back Back: Normal - Extremities General upper extremity: Normal inspection General lower extremity: Other - Left knee does have a mild effusion. The lateral collateral ligament is a little tender to palpate. The medial collateral ligament is not tender. The most tenderness on palpation is in the tissues above the patella. There is some increase in pain on attempts to flex the knee, and the effusion prevents much flexion. - Neurological Neuro grossly intact: Yes - Psychological Associated symptoms: Normal affect, Normal mood - Skin Skin Temperature: Warm Skin Moisture: Dry Skin Color: Normal Course - Vital Signs Vital signs: Temp Pulse Resp BP Pulse Ox 98.0 F 95 14 109/66 97 09/09/17 09:18 09/09/17 09:18 09/09/17 09:18 09/09/17 09:18 09/09/17 09:18 Discharge - Discharge Clinical Impression: Left knee sprain Qualifiers: Encounter type: subsequent encounter Involved ligament of knee: unspecified ligament Qualified Code(s): S83.92XD - Sprain of unspecified site of left knee, subsequent encounter Condition: Stable Disposition: HOME, SELF-CARE Additional Instructions: Rest your knee as much as possible. Limit walking is much as possible. Use the knee immobilizer when you have to be up walking. Take Motrin 600 mg every 8 hours, or Aleve 2 tablets every 12 hours. Add Tylenol for additional pain relief if needed. Use ice packs on the knee after you have been up walking around if it begins to hurt worse. Follow-up with the orthopedic doctors at [facility] if not improving over the next 2-3 weeks. Forms: Special Work Note
== END 2017-09-09 09:44 | disposition home or self-care (01) ==
LOC: ER 09:14
DX: S83.92XD Sprain of unspecified site of left knee, subsequent encounter (principal); M25.562 Pain in left knee; M79.89 Other specified soft tissue disorders; M25.462 Effusion, left knee; W10.9XXD Fall (on) (from) unspecified stairs and steps, subsequent encounter
CPT/HCPCS: 99283

== ENCOUNTER 2018-12-12 20:45 | Emergency (ER) | payer MEDICAID ==
[2018-12-12 21:17] VITALS: BP 115/67
== END 2018-12-12 23:30 | disposition left against medical advice (07) ==
LOC: ER 20:45
DX: Z53.21 Procedure and treatment not carried out due to patient leaving prior to being seen by health care provider (principal)

== ENCOUNTER 2019-02-27 14:36 | Emergency (ER) | payer MEDICAID ==
[2019-02-27] MEDS ORDERED: ACETAMINOPHEN 325 MG TABLET PO ONE (15:10)
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
--- NOTE | 2019-02-27 15:53 | RADIOLOGY REPORT (SQ) ---
EXAM DESCRIPTION: KNEE LEFT 4 VIEW COMPLETED DATE/TIME: 02/27/2019 3:44 pm REASON FOR STUDY: L knee pain COMPARISON: 09/05/2017. NUMBER OF VIEWS: Four views. TECHNIQUE: AP, lateral, and both oblique radiographic images acquired of the left knee. LIMITATIONS: None. FINDINGS: MINERALIZATION: Normal. BONES: No acute fracture or dislocation. No worrisome bone lesions. JOINT: No effusion. SOFT TISSUES: No soft tissue swelling. No radio-opaque foreign body. OTHER: No other significant finding. IMPRESSION: NEGATIVE STUDY OF THE LEFT KNEE. NO RADIOGRAPHIC EVIDENCE OF ACUTE INJURY. TECHNICAL DOCUMENTATION: JOB ID: [id number] [employer]- All Rights Reserved Reading location - IP/workstation name: [email or web address]
[2019-02-27 16:55] VITALS: BP 93/63
== END 2019-02-27 17:33 | disposition home or self-care (01) ==
LOC: ER 14:36
DX: S83.92XA Sprain of unspecified site of left knee, initial encounter (principal); F17.200 Nicotine dependence, unspecified, uncomplicated; X58.XXXA Exposure to other specified factors, initial encounter
CPT/HCPCS: 73564; J3490; 99283